=== PATIENT | male | born 1995 | race African-American/Black ===

== ENCOUNTER → 2017-01-08 | Outpatient (CLI) | payer OTHER ==
[2017-01-08 13:55] LABS: BASO % 0.3 %; BASO ABS # 0.02 K/uL (0-0.2); COMPLETE YES; EOS % 4.5 %; HEMATOCRIT 48.9 % (42-52); IG% 0.2 %; LYMPH % 28.2 %; LYMPH ABS # 1.62 K/uL (1.2-3.4); MEAN CELL VOLUME 89.2 fL (80-100); MEAN CORPUSCULAR HEMOGLOBIN 30.5 pg (25-34); MEAN CORPUSCULAR HGB CONC 34.2 g/dl (32-36); MEAN PLATELET VOLUME 9.4 fL (7.4-10.4); MONO % 6.8 %; PLATELET COUNT 267 K/uL (130-400); RED BLOOD COUNT 5.48 M/uL (4.7-6.1); WHITE BLOOD COUNT 5.74 K/uL (4.8-10.8)
[2017-01-08 14:40] LABS: CHOLESTEROL/HDL RATIO 5.3; THYROID STIMULATING HORMONE 1.1 uIu/ml (0.300-4.500)
[2017-01-08 14:44] LABS: LYME DISEASE AB IGM NEG (NEG)
[2017-01-08 14:45] LABS: LYME DISEASE AB IGG NEG (NEG)
== END | disposition home or self-care (01) ==
LOC: C.LABBC 10:13
PROVIDERS: ATTEND Physician Assistant Medical
DX: Z13.220 Encounter for screening for lipoid disorders (principal); Z13.1 Encounter for screening for diabetes mellitus; E66.9 Obesity, unspecified; Z13.29 Encounter for screening for other suspected endocrine disorder; R50.9 Fever, unspecified; R51 Headache

== ENCOUNTER → 2017-01-20 | Outpatient (CLI) | payer OTHER ==
[~2017-01-20] MED LIST: GADAVIST IV PRN
--- NOTE | 2017-01-20 08:55 | DIAGNOSTIC IMAGING REPORT ---
BRAIN COMBO CLINICAL HISTORY: FEVER; HEADACHE mental status change A.5 COMPARISON STUDY: No previous studies for comparison. TECHNIQUE: Utilizing a 1.5 Bridget magnet and dedicated coil, multiplanar, multiecho imaging of the brain was performed pre and postcontrast administration. IV administration of mL of Gadavist contrast was uneventful. FINDINGS: Signal characteristics are unremarkable. Diffusion-weighted images are negative for an acute ischemic insult. No abnormal postcontrast enhancement. Sella and parasellar regions are unremarkable. Ventricular system is midline. IMPRESSION: Normal study. The above report was generated using voice recognition software. It may contain grammatical, syntax or spelling errors. Electronically signed by: Diego Dong M.D. 01/20/2017 8:53 AM Dictated Date/Time: 01/20/2017 8:49 AM
== END | disposition home or self-care (01) ==
LOC: C.MRIBC 07:47
PROVIDERS: ATTEND Physician Assistant Medical
DX: R50.9 Fever, unspecified (principal); R51 Headache